=== PATIENT | female | born 1955 | race Caucasian/White ===

== ENCOUNTER 2017-02-10 11:44 | Emergency (ER) ==
[2017-02-10 11:50] VITALS: BP 139/71; TEMP 98; BMI 22.2
--- NOTE | 2017-02-10 12:03 | ED.PDOC ---
General ED Provider: Dr. DARRYL BALTAZAR JR Chief Complaint: Wrist Pain/Injury Stated Complaint: tripped on purse strap and fell out of car 1 week ago. complains of pain to right wrist. and left shoulder. [ End ]1 week 98.0 64 20 95% 139/71 8/10 Time Seen by Physician: 12:03 Mode of Arrival: Walk-In Information Source: Patient Exam Limitations: No limitations Primary Care Provider: DENNYS BOUCHER Nursing and Triage Documentation Reviewed and Agree: No Review of Systems - Review Of Systems Constitutional: Reports: No symptoms Eyes: Reports: No symptoms Ears, Nose, Mouth, Throat: Reports: No symptoms Respiratory: Reports: No symptoms Cardiac: Reports: No symptoms GI: Reports: No symptoms : Reports: No symptoms Musculoskeletal: Reports: Joint pain Skin: Reports: No symptoms Neurological: Reports: No symptoms Endocrine: Reports: No symptoms Hematologic/Lymphatic: Reports: No symptoms All Other Systems: Other Past Medical History - Past Medical History Previously Healthy: Yes Endocrine: Reports: None Cardiovascular: Reports: None Respiratory: Reports: None Hematological: Reports: None Gastrointestinal: Reports: None Genitourinary: Reports: None Neuro/Psych: Reports: None Musculoskeletal: Reports: Arthritis Cancer: Reports: None Last Menstrual Period: none - Surgical History General Surgical History: Reports: Hysterectomy, Cholecystectomy, 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, dysplasia) - Family History Family History: Reports: Unknown - Social History Smoking Status: Current every day smoker, Light tobacco smoker Hx Substance Use: No Alcohol Screening: None Physical Exam - Physical Exam Appearance: Well-appearing, Thin Pain Distress: Moderate Neck: Supple Respiratory: Airway patent Musculoskeletal: Normal strength, ROM intact, No edema, No calf tenderness ( tender left shoulder right scaphoid area) Skin: Warm, Dry, Normal color Neurological: Sensation intact, Reflexes intact, Cranial nerves intact, Alert, Oriented Psychiatric: Affect appropriate, Mood appropriate Critical Care Note - Critical Care Note Total Time (mins): 0 Course - Course Orders, Labs, Meds: Orders Category Date Time Status Splint [ED SPLINT APPLICATION] .ONCE EMERGENCY 02/10/17 12:53 Ordered SHOULDER, LEFT MIN 2V Stat RADS 02/10/17 12:09 Taken WRIST, RIGHT 3 VIEWS Stat RADS 02/10/17 12:09 Taken Vital Signs: Temp Pulse Resp BP Pulse Ox 02/10/17 11:44 98.0 F 64 20 139/71 95 Departure - Departure Time of Disposition: 12:53 Disposition: HOME SELF-CARE Discharge Problem: Injury of wrist Left shoulder strain Qualifiers: Encounter type: initial encounter Qualifier Code: (S46.912A) Strain of unspecified muscle, fascia and tendon at shoulder and upper arm level, left arm , initial encounter Strain of wrist, right Qualifiers: Encounter type: initial encounter Qualifier Code: (S66.911A) Strain of unspecified muscle, fascia and tendon at wrist and hand level, right hand, initial encounter Instructions: Wrist Sprain (ED), Wrist Injury (ED), Shoulder Sprain (ED), Shoulder Pain (ED) Condition: Good Pt referred to PMD for follow-up: Yes Additional Instructions: ice 20 minutes three times a day birdie wrap for comfort may continue ultram for pain not relieved by ibuprofen ibuprofen 600 TID PRN pain gentle range of motion once or twice a day to shoulder protect wrist recheck one week PMD Prescriptions: Ibuprofen [Motrin] 600 mg PO QID PRN #30 tablet PRN Reason: PAIN Tramadol HCl [Ultram] 50 mg PO Q6H PRN #14 tablet PRN Reason: PAIN Allergies/Adverse Reactions: Allergies No Known Allergies Allergy (Verified 02/10/17 11:49) Home Medications: Ambulatory Orders Ibuprofen [Motrin] 600 mg PO QID PRN #30 tablet 02/10/17 Tramadol HCl 50 mg PO DAILY 02/10/17 Tramadol HCl [Ultram] 50 mg PO Q6H PRN #14 tablet 02/10/17
--- NOTE | 2017-02-10 12:46 | DI ---
Exam: Three x-rays of the right wrist. Comparison: None available. Reason for exam: Fall with tenderness over scaphoid. FINDINGS: No acute fracture or dislocation. There are moderate to marked degenerative findings in the first carpal-metacarpal joint with joint space narrowing and osteophyte formation. The scaphoid appears intact. There are mild degenerative changes seen throughout the wrist. Impression: No acute fracture or dislocation is seen in the right wrist with moderate to marked deg enerative changes in the first carpal-metacarpal joint.
--- NOTE | 2017-02-10 12:47 | DI ---
Exam: Three x-rays of the left shoulder. Comparison: None available. Reason for exam: Fall with continued pain. FINDINGS: No acute fracture or dislocation. The joint spaces are well maintained. The humeral hea d articulates with the bony acetabulum. No unexplained calcific soft tissue densities or radiopaque retained foreign bodies. Impression: No acute fracture or dislocation is seen in the left shoulder.
== END 2017-02-10 13:11 | disposition home or self-care (01) ==
LOC: ED 11:44
DX: S46.912A Strain of unspecified muscle, fascia and tendon at shoulder and upper arm level, left arm, initial encounter (principal); S66.911A Strain of unspecified muscle, fascia and tendon at wrist and hand level, right hand, initial encounter; W01.0XXA Fall on same level from slipping, tripping and stumbling without subsequent striking against object, initial encounter; F17.210 Nicotine dependence, cigarettes, uncomplicated
CPT/HCPCS: 99282

== ENCOUNTER 2018-02-05 17:04 | Emergency (ER) | payer OTHER ==
[2018-02-05 17:11] VITALS: BP 146/82; TEMP 98.6; BMI 22.4
--- NOTE | 2018-02-05 17:47 | ED.PDOC ---
General ED Provider: Dr. AMANDA MONTOYA Chief Complaint: Hand Pain/Injury Stated Complaint: Patient states she was recently diagnosed with RA and is to see a Adult Neurologist at [facility] in 6 weeks. She complains of arthritic pain worse on the hands and mostly middle finger. PCP stopped tramadol due to potential drug-drug interactions. Rates the pain as 10/10 with limited range of motion. Time Seen by Physician: 17:37 Mode of Arrival: Walk-In Information Source: Patient Exam Limitations: No limitations Primary Care Provider: DENNYS BOUCHER Nursing and Triage Documentation Reviewed and Agree: Yes Reviewed sepsis parameters & appropriate labs ordered?: Yes System Inflammatory Response Syndrome: Not Applicable Sepsis Protocol: For patient's 13 years and over: Temp is 96.8 and below OR 101 and greater Pulse >90 BPM Resp >20/minute Acutely Altered Mental Status Are patient's symptoms suggestive of a new infection, such as: -Pneumonia -Skin, Soft Tissue -Endocarditis -UTI -Bone, Joint Infection -Implantable Device -Acute Abdominal Infection -Wound Infection -Meningitis -Blood Stream Catheter Infection -Unknown Review of Systems - Review Of Systems Constitutional: Reports: No symptoms Respiratory: Reports: No symptoms Cardiac: Reports: No symptoms GI: Reports: No symptoms : Reports: No symptoms Musculoskeletal: Reports: Joint pain, Joint swelling Skin: Reports: No symptoms Neurological: Reports: Anxiety All Other Systems: Reviewed and Negative Past Medical History - Past Medical History Previously Healthy: Yes Endocrine: Reports: None Cardiovascular: Reports: None Respiratory: Reports: None Hematological: Reports: None Gastrointestinal: Reports: None Genitourinary: Reports: None Neuro/Psych: Reports: None Musculoskeletal: Reports: Arthritis Cancer: Reports: None Last Menstrual Period: n/a - Surgical History General Surgical History: Reports: Hysterectomy, Cholecystectomy, 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, dysplasia) - Family History Family History: Reports: Unknown - Social History Smoking Status: Current every day smoker, Light tobacco smoker Hx Substance Use: No Alcohol Screening: None Physical Exam - Physical Exam Appearance: Ill-appearing Ill-appearing: Mild Pain Distress: Severe Neck: Supple Respiratory: Airway patent, Breath sounds clear, Breath sounds equal, Respirations nonlabored Cardiovascular: RRR, Pulses normal, No rub, No murmur GI/: Soft Musculoskeletal: Limited ROM, Edema (mild on the middle fingers) Skin: Warm, Dry Neurological: Sensation intact, Alert, Oriented Psychiatric: Anxious Critical Care Note - Critical Care Note Total Time (mins): 0 Course - Course Orders, Labs, Meds: Orders Category Date Time Status Ketorolac Tromethamine [Toradol] MEDS 02/05/18 17:35 Discontinued 60 mg IM ONCE STA Medications Discontinued Medications Generic Name Dose Route Start Last Admin Trade Name Freq PRN Reason Stop Dose Admin Ketorolac Tromethamine 60 mg 02/05/18 17:35 02/05/18 18:01 Toradol IM 02/05/18 17:36 60 mg ONCE STA Administration Vital Signs: Temp Pulse Resp BP Pulse Ox 02/05/18 17:08 98.6 F 89 16 146/82 H 96 Departure - Departure Time of Disposition: 18:19 Disposition: HOME SELF-CARE Discharge Problem: Rheumatoid arthritis flare Instructions: Rheumatoid Arthritis (ED) Condition: Fair Pt referred to PMD for follow-up: Yes IPMP verified?: No Additional Instructions: Take medications as prescribed. Follow up with PCP in 3-5 days Prescriptions: Hydrocodone Bit/Acetaminophen [Corwith 7.5-325] 0.5 each PO Q12H PRN #14 tablet PRN Reason: Severe Pain Allergies/Adverse Reactions: Allergies No Known Allergies Allergy (Verified 02/05/18 17:11) Home Medications: Ambulatory Orders Ibuprofen [Motrin] 600 mg PO QID PRN #30 tablet 02/10/17 Hydrocodone Bit/Acetaminophen [Corwith 7.5-325] 0.5 each PO Q12H PRN #14 tablet Ibandronate Sodium [Boniva] 150 mg PO MONTHLY 02/05/18 Prednisone 10 mg PO DAILYWM 02/05/18 Disposition Discussed With: Patient, Family
[2018-02-05] MEDS: TORADOL IM STA (18:01)
== END 2018-02-05 18:29 | disposition home or self-care (01) ==
LOC: ED 17:04
DX: M79.642 Pain in left hand (principal); M79.641 Pain in right hand; M06.9 Rheumatoid arthritis, unspecified
CPT/HCPCS: 96372; 99282

== ENCOUNTER 2018-09-03 14:48 | Emergency (ER) | payer OTHER ==
[2018-09-03 14:57] VITALS: BP 139/77; TEMP 98.3; BMI 24.7
--- NOTE | 2018-09-03 15:31 | ED.PDOC ---
General ED Provider: Dr. AMANDA MONTOYA Chief Complaint: Rash Stated Complaint: Patient complains of oral ulcers that started yesterday. worse today. was given Viscus lidocaine but has not helped. She was on methotraxate 1 tablet daily then when she saw the [employer] it was changed to 8 tablet x 1 time a week. It was then that it started having mouth sores and today she has developed a peticheal rash on the arms and chest. Time Seen by Physician: 15:31 Mode of Arrival: Walk-In Information Source: Patient, Family Primary Care Provider: DENNYS BOUCHER Nursing and Triage Documentation Reviewed and Agree: Yes Does patient meet sepsis criteria?: No System Inflammatory Response Syndrome: Not Applicable Sepsis Protocol: For patient's 13 years and over: Temp is 96.8 and below OR 101 and greater Pulse >90 BPM Resp >20/minute Acutely Altered Mental Status Are patient's symptoms suggestive of a new infection, such as: -Pneumonia -Skin, Soft Tissue -Endocarditis -UTI -Bone, Joint Infection -Implantable Device -Acute Abdominal Infection -Wound Infection -Meningitis -Blood Stream Catheter Infection -Unknown EENT Complaint Exam - Dental/Oral Complaint/Exam Mechanism of Injury: No known trauma Onset/Duration: 2 days Timing: Constant Initial Severity: Severe Current Severity: Severe Location: mucus membranes and roof of mouth Character: Reports: Aching, Throbbing Aggravating: Reports: Heat, Cold, Chewing Associated Signs and Symptoms: Denies: Swelling, Discharge, Fever, Foul odor, Foul taste in mouth Related History: Denies: Similar episode Dental/Oral Surgical History: Reports: None Tooth Findings: Present: Normal findings Lesions: Present: Lip, Gums, Buccal Mucosa Differential Diagnoses: Thrush, Stomatitis Review of Systems - Review Of Systems Constitutional: Reports: No symptoms Eyes: Reports: No symptoms Ears, Nose, Mouth, Throat: Reports: Mouth pain Respiratory: Reports: No symptoms Cardiac: Reports: No symptoms GI: Reports: No symptoms : Reports: No symptoms Musculoskeletal: Reports: No symptoms Skin: Reports: Rash (Petichial on upper chest and forearms. ) Neurological: Reports: Anxiety Endocrine: Reports: No symptoms Hematologic/Lymphatic: Reports: No symptoms All Other Systems: Reviewed and Negative Past Medical History - Past Medical History Previously Healthy: Yes Endocrine: Reports: None Cardiovascular: Reports: None Respiratory: Reports: None Hematological: Reports: None Gastrointestinal: Reports: None Genitourinary: Reports: None Neuro/Psych: Reports: None Musculoskeletal: Reports: Arthritis (Rheumatoid ) Cancer: Reports: None Last Menstrual Period: hysterectomy - Surgical History General Surgical History: Reports: Hysterectomy, Cholecystectomy, 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, dysplasia) - Family History Family History: Reports: Unknown - Social History Smoking Status: Current every day smoker, Light tobacco smoker Hx Substance Use: No Alcohol Screening: None Physical Exam - Physical Exam Appearance: Ill-appearing Ill-appearing: Mild Pain Distress: Moderate Eyes: BEULAH, EOMI Respiratory: Airway patent, Breath sounds clear, Breath sounds equal, Respirations nonlabored Cardiovascular: RRR, Pulses normal, No rub, No murmur GI/: Soft, Nontender, No masses Musculoskeletal: ROM intact, No edema Skin: Warm, Dry Neurological: Sensation intact, Alert, Oriented Psychiatric: Anxious Critical Care Note - Critical Care Note Total Time (mins): 0 Course - Course Hematology/Chemistry: 09/03/18 15:30 09/03/18 15:30 Orders, Labs, Meds: Orders Category Date Time Status C-REACTIVE PROTEIN Stat LAB 09/03/18 15:28 Ordered CBC W/ AUTO DIFF Stat LAB 09/03/18 15:23 Ordered COMPREHENSIVE METABOLIC PANEL Stat LAB 09/03/18 15:23 Ordered ESR Stat LAB 09/03/18 15:28 Ordered Vital Signs: Temp Pulse Resp BP Pulse Ox 09/03/18 14:49 98.3 F 93 H 20 139/77 98 Departure - Departure Time of Disposition: 16:14 Disposition: HOME SELF-CARE Discharge Problem: Drug-induced thrombocytopenic purpura, Oral mucositis, Oral candidiasis Instructions: Oral Candidiasis (ED), Canker Sores (ED), Oral Mucositis (ED), Thrombocytopenia (ED) Condition: Fair Pt referred to PMD for follow-up: Yes IPMP verified?: No Additional Instructions: MUST FOLLOW UP IN 2 DAYS FOR REPEAT LAB USE MEDICATIONS PRESCRIBED RETURN IF WORSE. Prescriptions: Diphen/Lido/Nystat/Mag-Al-Nawaf [Magic Mouthwash] 355 ml PO ACHS #150 oral.susp Allergies/Adverse Reactions: Allergies No Known Allergies Allergy (Verified 09/03/18 14:58) Home Medications: Ambulatory Orders Folic Acid 2 mg PO DAILY 05/12/18 Meloxicam 15 mg PO DAILY 05/12/18 Prednisone 5 mg PO DAILY 05/12/18 Cholecalciferol (Vitamin D3) [Vitamin D3] 2,000 unit PO DAILY 09/03/18 Diphen/Lido/Nystat/Mag-Al-Nawaf [Magic Mouthwash] 355 ml PO ACHS #150 oral.susp 09/03/18 Lidocaine HCl [Lidocaine Viscous 2%] 15 ml MUCOUSMEMB Q3HR PRN 09/03/18 Disposition Discussed With: Patient, Family
== END 2018-09-03 16:47 | disposition home or self-care (01) ==
LOC: ED 14:48
DX: D69.49 Other primary thrombocytopenia (principal); T45.1X5A Adverse effect of antineoplastic and immunosuppressive drugs, initial encounter; K12.32 Oral mucositis (ulcerative) due to other drugs; B37.0 Candidal stomatitis; F17.210 Nicotine dependence, cigarettes, uncomplicated; Z79.899 Other long term (current) drug therapy
CPT/HCPCS: 36415; 80053; 85008; 85025; 85651; 86140; 99283

== ENCOUNTER 2018-09-24 13:37 | Emergency (ER) | payer OTHER ==
[2018-09-24 13:53] VITALS: BP 146/83; TEMP 98; BMI 25.9
--- NOTE | 2018-09-24 15:09 | ED.PDOC ---
General ED Provider: Dr. SCAR WOO Chief Complaint: Non-specific Complaint Stated Complaint: rheumatoid arthritis pain and swelling of hands Time Seen by Physician: 15:16 Mode of Arrival: Wheelchair Information Source: Patient, Family Exam Limitations: No limitations Primary Care Provider: DENNYS BOUCHER Nursing and Triage Documentation Reviewed and Agree: Yes Does patient meet sepsis criteria?: No System Inflammatory Response Syndrome: Not Applicable Sepsis Protocol: For patient's 13 years and over: Temp is 96.8 and below OR 101 and greater Pulse >90 BPM Resp >20/minute Acutely Altered Mental Status Are patient's symptoms suggestive of a new infection, such as: -Pneumonia -Skin, Soft Tissue -Endocarditis -UTI -Bone, Joint Infection -Implantable Device -Acute Abdominal Infection -Wound Infection -Meningitis -Blood Stream Catheter Infection -Unknown Musculoskeletal Complaint Exam - Hand/Wrist Complaint/Exam Location of Pain: Reports: Left Mechanism of Injury: Reports: Other Symptoms Are: Still present Onset of Pain: Reports: Prior to arrival Initial Severity: Moderate Current Severity: Moderate Location: Reports: Discrete Character: Reports: Aching Alleviating: Reports: Rest Associated Signs and Symptoms: Reports: Swelling Related History: Reports: Similar episode Dominant Hand: Right Related Surgical History: Reports: None Hand/Wrist Findings: Present: Swelling Tenderness: Present: Metacarpal Differential Diagnoses: Tendonitis Review of Systems - Review Of Systems Constitutional: Reports: No symptoms Eyes: Reports: No symptoms Ears, Nose, Mouth, Throat: Reports: No symptoms Respiratory: Reports: No symptoms Cardiac: Reports: No symptoms GI: Reports: No symptoms : Reports: No symptoms Musculoskeletal: Reports: No symptoms Skin: Reports: No symptoms Neurological: Reports: No symptoms Endocrine: Reports: No symptoms Hematologic/Lymphatic: Reports: No symptoms All Other Systems: Reviewed and Negative Past Medical History - Past Medical History Previously Healthy: Yes Endocrine: Reports: None Cardiovascular: Reports: None Respiratory: Reports: None Hematological: Reports: None Gastrointestinal: Reports: None Genitourinary: Reports: None Neuro/Psych: Reports: None Musculoskeletal: Reports: Arthritis (Rheumatoid ) Cancer: Reports: None Last Menstrual Period: hysterectomy - Surgical History General Surgical History: Reports: Hysterectomy, Cholecystectomy, 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, dysplasia) - Family History Family History: Reports: Unknown - Social History Smoking Status: Current every day smoker, Light tobacco smoker Hx Substance Use: No Alcohol Screening: None Physical Exam - Physical Exam Appearance: Well-appearing Ill-appearing: None Pain Distress: Moderate Eyes: BEULAH ENT: Ears normal Neck: Supple Respiratory: Airway patent Cardiovascular: RRR GI/: Soft Musculoskeletal: Normal strength Skin: Warm Neurological: Sensation intact Critical Care Note - Critical Care Note Total Time (mins): 0 Course - Course Vital Signs: Temp Pulse Resp BP Pulse Ox 09/24/18 13:37 98 F 112 H 20 146/83 H 96 Departure - Departure Time of Disposition: 15:13 Disposition: HOME SELF-CARE Discharge Problem: Rheumatoid arthritis Instructions: Rheumatoid Arthritis (ED) Condition: Good Pt referred to PMD for follow-up: No IPMP verified?: No Allergies/Adverse Reactions: Allergies No Known Allergies Allergy (Verified 09/24/18 13:45) Home Medications: Ambulatory Orders Prednisone 10 mg PO DAILY 05/12/18 Cholecalciferol (Vitamin D3) [Vitamin D3] 2,000 unit PO DAILY 09/03/18 Diphen/Lido/Nystat/Mag-Al-Nawaf [Magic Mouthwash] 355 ml PO ACHS #150 oral.susp 09/03/18 Disposition Discussed With: Patient, Family
== END 2018-09-24 15:26 | disposition home or self-care (01) ==
LOC: ED 13:37
DX: M06.9 Rheumatoid arthritis, unspecified (principal); F17.210 Nicotine dependence, cigarettes, uncomplicated
CPT/HCPCS: 99282

== ENCOUNTER 2018-10-03 10:49 | Outpatient (CLI) | payer OTHER ==
--- NOTE | 2018-10-03 13:41 | DI ---
EXAM: Two views of the chest. History: Chest pain, long-term medication use Findings: Heart size is within normal limits. No focal consolidation. No appreciable pleural fluid and no pneumothorax. No acute osseous abnormalities. Cholecystectomy clips. Impression: No acute cardiopulmonary process
== END 2018-10-03 10:50 | disposition home or self-care (01) ==
LOC: RAD 10:49
PROVIDERS: ATTEND Nurse Practitioner
DX: Z79.899 Other long term (current) drug therapy (principal)
CPT/HCPCS: 36415